=== PATIENT | female | born 2000 | race Two or more races ===

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

== ENCOUNTER 2022-01-25 15:36 | Outpatient (CLI) | payer OTHER | END 2022-01-25 17:20 | disposition home or self-care (01) | LOC: PRENATAL 15:36 | PROVIDERS: ATTEND Obstetrics & Gynecology Maternal & Fetal Medicine | DX: O35.1XX1 Maternal care for (suspected) chromosomal abnormality in fetus, fetus 1 (principal); O35.3XX0 Maternal care for (suspected) damage to fetus from viral disease in mother, not applicable or unspecified; O34.30 Maternal care for cervical incompetence, unspecified trimester ==

== ENCOUNTER 2022-02-20 05:39 | Outpatient (CLI) | payer OTHER ==
[~2022-02-20 05:39] MED LIST: PRENA1 CHEW TA1.4 MG PO
[2022-02-20] MEDS ORDERED: AMPICILLIN TRI500 MG PO (16:31)
== END 2022-02-20 18:02 | disposition home or self-care (01) ==
LOC: OBS/DEL 05:39
PROVIDERS: ATTEND Specialist
DX: O23.42 Unspecified infection of urinary tract in pregnancy, second trimester (principal); N39.0 Urinary tract infection, site not specified; Z3A.23 23 weeks gestation of pregnancy

== ENCOUNTER 2022-05-03 08:51 | Inpatient (IN) | payer OTHER ==
[~2022-05-03] VITALS: Ht 157.5 cm; Wt 1.8 kg
[~2022-05-03 08:51] MED LIST changes: +AMPICILLIN TRI500 MG PO
== END 2022-05-05 17:48 | disposition home or self-care (01) | DRG 768 ==
LOC: OB/GYN 08:51 → LDR 08:51 → OB/GYN 13:36
PROVIDERS: ADMIT Specialist; ATTEND Specialist
PROC: 10E0XZZ Delivery of Products of Conception, External Approach (ICD-10-PCS; principal; 2022-05-03)
PROC: 0UCC7ZZ Extirpation of Matter from Cervix, Via Natural or Artificial Opening (ICD-10-PCS; 2022-05-03)
PROC: 0UQG7ZZ Repair Vagina, Via Natural or Artificial Opening (ICD-10-PCS; 2022-05-03)
PROC: BY4FZZZ Ultrasonography of Third Trimester, Single Fetus (ICD-10-PCS; 2022-05-03)
PROC: 4A1HXCZ Monitoring of Products of Conception, Cardiac Rate, External Approach (ICD-10-PCS; 2022-05-03)
DX: O71.4 Obstetric high vaginal laceration alone (principal); O60.14X0 Preterm labor third trimester with preterm delivery third trimester, not applicable or unspecified; Z37.0 Single live birth; Z3A.33 33 weeks gestation of pregnancy; Z20.822 Contact with and (suspected) exposure to COVID-19

== ENCOUNTER 2023-04-04 18:27 | Inpatient (IN) | payer OTHER ==
[~2023-04-04] VITALS: Ht 152.4 cm; Wt 108.9 kg
== END 2023-04-20 17:03 | disposition home or self-care (01) | DRG 998 ==
LOC: OBS/DEL 18:27 → OB/GYN 04-05 17:43 → LDR 04-05 17:43 → OB/GYN 04-06 11:00
PROVIDERS: ADMIT Specialist; ATTEND Specialist
PROC: 4A1HXCZ Monitoring of Products of Conception, Cardiac Rate, External Approach (ICD-10-PCS; 2023-04-05)
PROC: BY4FZZZ Ultrasonography of Third Trimester, Single Fetus (ICD-10-PCS; 2023-04-05)
PROC: BU4CZZZ Ultrasonography of Uterus and Ovaries (ICD-10-PCS; 2023-04-05)
PROC: 10E0XZZ Delivery of Products of Conception, External Approach (ICD-10-PCS; principal; 2023-04-18)
DX: O60.14X0 Preterm labor third trimester with preterm delivery third trimester, not applicable or unspecified (principal); O26.843 Uterine size-date discrepancy, third trimester; O36.8130 Decreased fetal movements, third trimester, not applicable or unspecified; Z3A.34 34 weeks gestation of pregnancy; Z20.822 Contact with and (suspected) exposure to COVID-19

== ENCOUNTER 2024-09-09 09:48 | Emergency (ER) | payer OTHER ==
[~2024-09-09] VITALS: Ht 157.5 cm; Wt 108.9 kg
== END 2024-09-09 14:28 | disposition home or self-care (01) ==
LOC: ER 09:50
DX: J10.1 Influenza due to other identified influenza virus with other respiratory manifestations (principal); Z20.822 Contact with and (suspected) exposure to COVID-19